=== PATIENT | male | born 1960 | race Caucasian/White ===

== ENCOUNTER 2018-11-15 15:09 | Day surgery (SDC) | payer BC ==
[~2018-11-15] VITALS: Ht 190.5 cm; Wt 120.6 kg
[2018-11-15] MEDS ORDERED: RT ADVAIR 128 DISKUS IH (15:26)
[2018-11-15] MEDS ORDERED: COREG 25MG25 MG/TAB (15:26)
[2018-11-15] MEDS ORDERED: CEPHALEXIN500 M1 (15:27)
[2018-11-15] MEDS ORDERED: BENICAR HCT 251 TAB PO (15:28)
[2018-11-15 15:29] VITALS: BP 112/81; PULSE 68; TEMP 97.7
[2018-11-15 16:50] VITALS: BP 113/84; PULSE 77; TEMP 97.4
--- NOTE | 2018-11-15 16:50 | NUR ---
1650-Patient assisted with ambulating from cart to chair and he did well. brought back to sit with him. Given water and sprite per request. Patient denies having any abdominal pain or nausea. Connected back to monitors and vitals are stable. 1700-Dr. Donaldson is in speaking with patient and his . Report given to YULIYA Chahal.
--- NOTE | 2018-11-15 17:15 | NUR ---
Visit with patient and . Pt has no complaints of pain or nausea. Taking drink well. Asks for muffin and applesauce.
[2018-11-15 17:21] VITALS: BP 123/89; PULSE 78
[2018-11-15 17:30] VITALS: BP 127/82; PULSE 72
--- NOTE | 2018-11-15 17:35 | NUR ---
Discharge instructions given to patient and . Handed to them are a thank you card, discharge instructions, diagnosis information, and a discharge med sheet.
--- NOTE | 2018-11-15 17:45 | NUR ---
Pt ambulates out of hospital with steady gait accompanied by and this RN. Ambulate to private vehicle driven by .
== END 2018-11-15 17:45 | disposition home or self-care (01) ==
LOC: SDCO 15:09
DX: K51.311 Ulcerative (chronic) rectosigmoiditis with rectal bleeding (principal); J45.909 Unspecified asthma, uncomplicated; I10 Essential (primary) hypertension; K63.89 Other specified diseases of intestine; K57.30 Diverticulosis of large intestine without perforation or abscess without bleeding
CPT/HCPCS: J2250; J3010; J7030